=== PATIENT | female | born 1950 | race Caucasian/White ===

== ENCOUNTER 2016-10-15 22:28 | Emergency (ER) | payer MEDICARE, OTHER ==
[~2016-10-15] VITALS: Ht 177.8 cm; Wt 81.6 kg
[~2016-10-15 22:28] MED LIST: AZEL137S5 NS; CALC-102 PO; CEPH500C PO; CETI10CA PO; DICL50TA4 PO; ESOM40CA PO; ESTR30CR VG; EZET1TAB4 PO; FLUT16SP2 NS; GLUC1CAP57 PO; LEVO0.5P MC; LINA145C PO; METH-39 PO; MULT-496 PO; OMEG1CAP2 PO; PSEU30LI PO; RISE35TA3 PO; SERT100T PO; UBID30CA9 PO; VIT1TABL65 PO; ZOLP5TAB PO
--- NOTE | 2016-10-15 22:33 | ED.ADGEN ---
Past History Past Medical History: Hypothyroid, Other Past Surgical History: Other Adult General Chief Complaint Chief Complaint ".. I just missed the last step... and it is the same ankle I broke before... and stubbed my Lt. big toe too...." HPI HPI Patient is a 65 year old female who presents with injury to Rt. ankle and Lt 1st toe. Pt. has marked swelling and unstable right ankle. Distal neurovascular appears to be intact. Patient does have tenderness to left first toe. Pt. did walk on the fx. ankle to get back up the stair.s Patient is now unable to bear weight since the time of injury. Patient normally follows with Dr. Landeros. Patient has had surgery on right ankle due to previous fracture. No other injuries currently reported. Pt. ate just before injury. Review of Systems Review of Systems Constitutional: Denies fever or chills [] Eyes: Denies change in visual acuity, redness, or eye pain [] HENT: Denies nasal congestion or sore throat [] Respiratory: Denies cough or shortness of breath [] Cardiovascular: No additional information not addressed in HPI [] GI: Denies abdominal pain, nausea, vomiting, bloody stools or diarrhea [] : Denies dysuria or hematuria [] Musculoskeletal: Complains of bilateral foot pain and right ankle pain Integument: Denies rash or skin lesions [] Neurologic: Denies headache, focal weakness or sensory changes [] Endocrine: Denies polyuria or polydipsia [] Family History Family History Noncontributory Current Medications Current Medications Current Medications Medications (Trade) Dose Ordered Sig/Kellen Start Time Stop Time Status Last Admin Dose Admin Fentanyl Citrate 25 mcg 25 mcg PRN Q15MIN PRN 10/15/16 22:45 10/16/16 03:53 DC 10/15/16 23:39 25 MCG Lactated Ringer's (Iv Lactated Ringers) 1,000 ml @ 1,000 mls/hr Q1H 10/15/16 22:45 10/16/16 03:53 DC 10/15/16 23:38 1,000 MLS/HR Ondansetron HCl (Zofran) 8 mg 1X ONCE 10/15/16 23:00 10/15/16 23:01 DC 10/15/16 23:00 8 MG See nursing for home medications Allergies Allergies Allergies Coded Allergies Type Severity Reaction Last Updated Verified Sulfa (Sulfonamide Antibiotics) Allergy Intermediate Rash 11/09/14 Yes cefdinir Allergy Intermediate CDIF after using for 6 days 07/16/13 Yes metaxalone Allergy Intermediate nausea 07/16/13 Yes nalbuphine HCl Adverse Reaction Severe HEADACHE 07/16/13 Yes Physical Exam Physical Exam Constitutional: in acute distress, non-toxic appearance. [] HENT: Normocephalic, atraumatic, bilateral external ears normal, oropharynx moist, no oral exudates, nose normal. [] Eyes: PERRLA, EOMI, conjunctiva normal, no discharge. Glasses. Neck: Normal range of motion, no tenderness, supple, no stridor. [] Cardiovascular:Heart rate regular rhythm, no murmur [] Lungs & Thorax: Bilateral breath sounds equal at apexes onauscultation [] Abdomen: Bowel sounds normal, soft, no tenderness, no masses, no pulsatile masses. [] Skin: Warm, dry, no erythema, no rash. [] Back: No tenderness, no CVA tenderness. [] Extremities: Rt. ankle, bilateral feet tenderness, no cyanosis, no clubbing, Rt. ankle and bilateral foot edema. [] No upper leg tenderness. Neurologic: Alert and oriented X 3, normal motor function, normal sensory function, no focal deficits noted. [] Psychologic: Affect anxious, judgement normal, mood normal. [] Current Patient Data Vital Signs Vital Signs Date Time Temp Pulse Resp B/P Pulse Ox O2 Delivery O2 Flow Rate FiO2 10/16/16 01:11 67 16 147/85 94 10/15/16 22:47 98.6 Room Air Lab Results Laboratory Tests Test 10/15/16 22:45 10/15/16 23:45 White Blood Count 11.9x10^3/uL (4.0-11.0) H Red Blood Count 5.13x10^6/uL (3.50-5.40) Hemoglobin 15.6g/dL (12.0-15.5) H Hematocrit 46.6% (36.0-47.0) Mean Corpuscular Volume 91fL (79-100) Mean Corpuscular Hemoglobin 30pg (25-35) Mean Corpuscular Hemoglobin Concent 33g/dL (31-37) Red Cell Distribution Width 13.6% (11.5-14.5) Platelet Count 130x10^3/uL (140-400) L Neutrophils (%) (Auto) 75% (31-73) H Lymphocytes (%) (Auto) 17% (24-48) L Monocytes (%) (Auto) 7% (0-9) Eosinophils (%) (Auto) 1% (0-3) Basophils (%) (Auto) 0% (0-3) Neutrophils # (Auto) 8.9x10^3uL (1.8-7.7) H Lymphocytes # (Auto) 2.1x10^3/uL (1.0-4.8) Monocytes # (Auto) 0.8x10^3/uL (0.0-1.1) Eosinophils # (Auto) 0.1x10^3/uL (0.0-0.7) Basophils # (Auto) 0.0x10^3/uL (0.0-0.2) Prothrombin Time 10.9SEC (9.4-11.4) Prothrombin Time INR 1.1 (0.9-1.1) PTT 24SEC (23-33) Sodium Level 140mmol/L (136-145) Potassium Level 3.8mmol/L (3.5-5.1) Chloride Level 105mmol/L (98-107) Carbon Dioxide Level 24mmol/L (21-32) Anion Gap 11 (6-14) Blood Urea Nitrogen 23mg/dL (7-20) H Creatinine 1.3mg/dL (0.6-1.0) H Estimated GFR (Cockcroft-Gault) 41.0 Glucose Level 157mg/dL (70-99) H Calcium Level 9.3mg/dL (8.5-10.1) BI-Nly-G-Type Natriuretic Peptide 238pg/mL (0-124) H Urine Collection Type Unknown Urine Color Yellow Urine Clarity Hazy Urine pH 6.0 Urine Specific Loving 1.010 Urine Protein Neg (NEG-TRACE) Urine Glucose (UA) Negmg/dL (NEG) Urine Ketones (Stick) Negmg/dL (NEG) Urine Blood Neg (NEG) Urine Nitrite Neg (NEG) Urine Bilirubin Neg (NEG) Urine Urobilinogen Dipstick 0.2mg/dL (0.2 mg/dL) Urine Leukocyte Esterase Neg (NEG) Urine RBC 1-2/HPF (0-2) Urine WBC 1-4/HPF (0-4) Urine Squamous Epithelial Cells Mod/LPF Urine Bacteria Few/HPF (0-FEW) Urine Hyaline Casts Occ/HPF EKG EKG My interpretation EKG shows sinus rhythm at 70 bpm. There is mild leftward axis. This was nonspecific anterior lateral changes. But no findings acute STEMI with contralateral changes. [] Radiology/Procedures Radiology/Procedures My interpretation of Rt. ankle films shows fibular and tibia fx. Old surgery hardware screw in Rt. foot. Lt 1st toe fx. CXR shows no acute cardio pul. changes. [] Course & Med Decision Making Course & Med Decision Making Pertinent Labs and Imaging studies reviewed. (See chart for details). Dr. Arenas consulted for Fx.'s. Dr. Rollins [facility] accepting- in transfer to [facility]. Splint- Posterior -Distal neuro vascular intact.s [] Final Impression Final Impression 1. Fx. Tibia and Fibular 2. Possible Fx. Lt. 1st toe 3. Elevate Creat. and BUN 4. DM 5. Leukocytosis 6. Thrombocytopenia Problems: Dragon Disclaimer Dragon Disclaimer This electronic medical record was generated, in whole or in part, using a voice recognition dictation system. GARCIA RAMOS MD Oct 15, 2016 22:33
[2016-10-15] MEDS ORDERED: FENTANYL PF 100 MCG/2 ML VIAL. IV PRN (22:45)
[2016-10-15] MEDS ORDERED: IV RINGERS SOLUTION,LACTATED 1,000 ML IV SCH (22:45)
--- NOTE | 2016-10-15 22:58 | EKG ---
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
[2016-10-15] MEDS ORDERED: ONDANSETRON PF 4 MG/2 ML VIAL. IV ONE (23:00)
[2016-10-15 23:09] LABS: BASO % 0 % (0-3); EOS # 0.1 x10^3/uL (0.0-0.7); EOS % 1 % (0-3); HEMATOCRIT 46.6 % (36.0-47.0); HEMOGLOBIN 15.6 g/dL (12.0-15.5); LYMPH # 2.1 x10^3/uL (1.0-4.8); LYMPH % 17 % (24-48); MEAN CORPUSCULAR HEMOGLOBIN 30 pg (25-35); MEAN CORPUSCULAR HGB CONC 33 g/dL (31-37); MEAN CORPUSCULAR VOLUME 91 fL (79-100); MONO # 0.8 x10^3/uL (0.0-1.1); MONO % 7 % (0-9); NEUT # 8.9 x10^3uL (1.8-7.7); NEUT % 75 % (31-73); PLATELET COUNT 130 x10^3/uL (140-400); RED BLOOD COUNT 5.13 x10^6/uL (3.50-5.40); RED CELL DISTRIBUTION WIDTH 13.6 % (11.5-14.5); WHITE BLOOD COUNT 11.9 x10^3/uL (4.0-11.0)
[2016-10-15 23:34] LABS: CALCIUM 9.3 mg/dL (8.5-10.1); CREATININE 1.3 mg/dL (0.6-1.0); POTASSIUM 3.8 mmol/L (3.5-5.1)
[2016-10-16 01:11] VITALS: BP 147/85
[2016-10-16 02:02] LABS: BACTERIA,URINE FEW /HPF (0-FEW); BILIRUBIN,URINE NEG (NEG); CLARITY,URINE HAZY; COLOR,URINE YELLOW; GLUCOSE,URINE NEG (NEG); NITRITE,URINE NEG (NEG); SQUAMOUS EPITHELIAL CELL,UR MOD /LPF; UROBILINOGEN,URINE 0.2 mg/dL (0.2 mg/dL)
[2016-10-16 02:03] LABS: HYALINE CASTS, URINE OCC /HPF
--- NOTE | 2016-10-16 07:40 | RAD ---
Right ankle, 3 views, 10/15/2016: History: Fall, pain There is an oblique fracture of the distal fibula with no significant displacement or angulation at the fracture site. There is mild cortical irregularity along the lateral aspect of the distal tibia in the region of the interosseous membrane. No definite acute fracture line is seen. There are tiny radiopacities projected over the soft tissues along the posteromedial aspect of the medial malleolus. It is unclear whether these represent foreign bodies or nonspecific periarticular calcifications. No acute medial malleolar fracture is seen. There is moderate diffuse soft tissue swelling about the ankle. IMPRESSION: Acute distal fibular fracture. Right tibia and fibula, 2 views, 10/15/2016: History: Fall, pain Views of the proximal tibia and fibula reveal no additional acute fracture. There is slight cortical thickening involving the proximal fibular shaft which may be due to old trauma. The visualized portions of the knee are unremarkable. IMPRESSION: No additional fracture is identified.
--- NOTE | 2016-10-16 07:41 | RAD ---
Portable chest, 10/15/2016: History: Fall, injuries The heart size and pulmonary vascularity are normal. No pulmonary infiltrates are seen. There is no evidence of pleural fluid or pneumothorax. IMPRESSION: No acute cardiopulmonary abnormality is detected.
--- NOTE | 2016-10-16 07:45 | RAD ---
Bilateral feet, 10/15/2016: History: Fall, pain There is a surgical screw related to the right distal first metatarsal apparently secondary to previous bunion surgery. The patient's known right distal fibular fracture is again noted. No acute foot fracture or dislocation is detected. There are mild scattered degenerative changes. IMPRESSION: No acute foot abnormality is detected.
== END 2016-10-16 03:53 | disposition short-term general hospital (02) ==
LOC: ER 22:34
DX: S82.301A Unspecified fracture of lower end of right tibia, initial encounter for closed fracture (principal); S82.491A Other fracture of shaft of right fibula, initial encounter for closed fracture; S99.922A Unspecified injury of left foot, initial encounter; R79.89 Other specified abnormal findings of blood chemistry; D72.829 Elevated white blood cell count, unspecified; D69.6 Thrombocytopenia, unspecified; E11.9 Type 2 diabetes mellitus without complications; E03.9 Hypothyroidism, unspecified; Z88.2 Allergy status to sulfonamides; Z88.1 Allergy status to other antibiotic agents; Z88.8 Allergy status to other drugs, medicaments and biological substances; W10.8XXA Fall (on) (from) other stairs and steps, initial encounter; Y93.89 Activity, other specified; Y99.8 Other external cause status; Y92.89 Other specified places as the place of occurrence of the external cause
CPT/HCPCS: 36415; 71010; 73590; 73610; 73630; 80048; 81001; 83880; 84443; 85027; 85610; 85730; 93005; 96361; 96374; 96375; 99285; J2405; J3010; J7120

== ENCOUNTER → 2017-02-20 | Outpatient (CLI) | payer MEDICARE, OTHER ==
[~2017-02-20] MED LIST changes: +EZET1TAB30 PO; -EZET1TAB4 PO
--- NOTE | 2017-02-20 14:02 | RAD ---
DATE: 02/20/2017 EXAM: MAMMO SOLIS SCREENING BILATERAL Bilateral digital screening mammography to include digital breast tomosynthesis (3D mammography) HISTORY: Screening study. COMPARISON: 09/12/2007 This study was interpreted with the benefit of Computerized Aided Detection (CAD). The breast parenchyma is heterogeneously dense, which could reduce sensitivity of mammography. Breast parenchyma level C. FINDINGS: Digital MLO and CC mammograms of both breasts were obtained. Additionally digital breast tomosynthesis (3D mammography) images of both breasts in the MLO and CC projections were performed. Comparison study is dated 02/20/2017. The breast parenchyma is composed of heterogeneously dense which can obscure a lesion on mammography (breast density code C). No spiculated mass is seen. No malignant appearing calcification or area of architectural distortion is noted. Benign-appearing calcifications are seen within both breasts. A localizing clip is seen within the right breast, unchanged. Digital breast tomosynthesis images demonstrate no spiculated mass or malignant appearing calcification. Since the previous examination there has been no significant interval change. IMPRESSION: BI-RADS Category 2, benign finding. There is no mammographic evidence of malignancy. Routine yearly screening mammography is recommended for follow-up. BI-RADS CATEGORY: 2 BENIGN FINDING(S) RECOMMENDED FOLLOW-UP: 12M 12 MONTH FOLLOW-UP PQRS compliance statement: Patient information was entered into a reminder system with a target due date 02/20/2018 for the next mammogram. Mammography is a sensitive method for finding small breast cancers, but it does not detect them all and is not a substitute for careful clinical examination. A negative mammogram does not negate a clinically suspicious finding and should not result in delay in biopsying a clinically suspicious abnormality. "Our facility is accredited by the [employer] Mammography Program."
== END | disposition home or self-care (01) ==
LOC: MAMMO 08:58
PROVIDERS: ATTEND General Practice
DX: Z12.31 Encounter for screening mammogram for malignant neoplasm of breast (principal)
CPT/HCPCS: 77063; G0202; 77067

== ENCOUNTER → 2017-05-06 | Outpatient (CLI) | payer OTHER, MEDICARE ==
--- NOTE | 2017-05-07 07:44 | RAD ---
Right foot, 3 views, 05/06/2017: History: Foot bruised There is a surgical screw in the distal first metatarsal with underlying bony deformity compatible with previous bunion type surgery. There are mild scattered degenerative changes. No acute fracture or dislocation is identified. There is mild subcutaneous edema. IMPRESSION: No acute bony abnormality is detected.
== END | disposition home or self-care (01) ==
LOC: RAD 16:27
PROVIDERS: ATTEND General Practice
DX: S90.31XA Contusion of right foot, initial encounter (principal); M19.071 Primary osteoarthritis, right ankle and foot
CPT/HCPCS: 73630

== ENCOUNTER → 2018-05-01 | Outpatient (CLI) | payer MEDICARE, OTHER ==
--- NOTE | 2018-05-01 13:55 | RAD ---
DATE: 05/01/2018 EXAM: MAMMO SOLIS SCREENING BILATERAL HISTORY: Routine screening COMPARISON: 02/20/2017 This study was interpreted with the benefit of Computerized Aided Detection (CAD). Breast Density: HETERO The breast parenchyma is heterogenously dense, which could reduce sensitivity of mammography. Breast parenchyma level C. FINDINGS: 2-D and 3-D tomosynthesis imaging was performed in CC and MLO projections. A small smooth nodule in the lateral aspect of the left breast is unchanged. No new or enlarging breast densities are seen. An old breast biopsy marker is again noted medially in the right breast with an adjacent coarse calcification. No suspicious microcalcifications have developed. IMPRESSION: Stable mammograms without evidence of malignancy. BI-RADS CATEGORY: 2 BENIGN FINDING(S) RECOMMENDED FOLLOW-UP: 12M 12 MONTH FOLLOW-UP PQRS compliance statement: Patient information was entered into a reminder system with a target due date for the next mammogram. Mammography is a sensitive method for finding small breast cancers, but it does not detect them all and is not a substitute for careful clinical examination. A negative mammogram does not negate a clinically suspicious finding and should not result in delay in biopsying a clinically suspicious abnormality. "Our facility is accredited by the [employer] Mammography Program."
== END | disposition home or self-care (01) ==
LOC: MAMMO 08:59
PROVIDERS: ATTEND Physician Assistant Medical
DX: Z12.31 Encounter for screening mammogram for malignant neoplasm of breast (principal)
CPT/HCPCS: 77063; 77067

== ENCOUNTER → 2018-05-20 | Day surgery (SDC) | payer MEDICARE, OTHER ==
[~2018-05-20] MED LIST changes: +ALBUTEROL SULFATE 2.5 MG/3 ML NEBU. NEB PRN; +ATOR20TA58 PO; +ATROPINE 0.5 MG/5 ML DISP.SYRIN. IV PRN; +BUPR150T15 PO; +CALC-112 PO; +CYCL1DRO EACHEYE; +DONE5TAB56 PO; +FISH12002 PO; +HYDR-2145 PO; +IV RINGERS SOLUTION,LACTATED 1,000 ML IV SCH; +LEVO75TA5 PO; +LIDOCAINE 2% PF Vial for OR 5 ML VIAL. ONE; +LISI-334 PO; +MELO7.5T5 PO; +MONT10TA9 PO; +NALOXONE 0.4 MG/ML VIAL. IV PRN; +ONDANSETRON PF 4 MG/2 ML VIAL. IV PRN; +PROPOFOL 40 ML IV ONE; +TIZA4TAB PO
[2018-05-20 12:41] VITALS: BP 125/71
== END | disposition home or self-care (01) ==
LOC: SURG 10:36
PROVIDERS: ATTEND Internal Medicine Gastroenterology
DX: Z09 Encounter for follow-up examination after completed treatment for conditions other than malignant neoplasm (principal); K63.5 Polyp of colon; Z86.010 Personal history of colon polyps; E78.5 Hyperlipidemia, unspecified; E03.9 Hypothyroidism, unspecified; K21.9 Gastro-esophageal reflux disease without esophagitis; F41.8 Other specified anxiety disorders; F32.9 Major depressive disorder, single episode, unspecified; J30.9 Allergic rhinitis, unspecified; M85.80 Other specified disorders of bone density and structure, unspecified site; G47.00 Insomnia, unspecified; Z88.2 Allergy status to sulfonamides; Z88.8 Allergy status to other drugs, medicaments and biological substances; Z79.899 Other long term (current) drug therapy; J06.9 Acute upper respiratory infection, unspecified; Z98.890 Other specified postprocedural states
CPT/HCPCS: 45385; J2704; J7120; G0105; J2001

== ENCOUNTER 2018-08-25 17:22 | Emergency (ER) | payer MEDICARE, OTHER ==
[~2018-08-25] VITALS: Ht 177.8 cm; Wt 88.5 kg
[~2018-08-25 17:22] MED LIST changes: -ALBUTEROL SULFATE 2.5 MG/3 ML NEBU. NEB PRN; -ATROPINE 0.5 MG/5 ML DISP.SYRIN. IV PRN; -IV RINGERS SOLUTION,LACTATED 1,000 ML IV SCH; -LIDOCAINE 2% PF Vial for OR 5 ML VIAL. ONE; -NALOXONE 0.4 MG/ML VIAL. IV PRN; -ONDANSETRON PF 4 MG/2 ML VIAL. IV PRN; -PROPOFOL 40 ML IV ONE
--- NOTE | 2018-08-25 18:21 | ED.ADGEN ---
Past History Past Medical History: Anxiety, High Cholesterol, Hypertension, Hypothyroid Past Surgical History: Other Alcohol Use: None Drug Use: None Adult General Chief Complaint Chief Complaint foot pain HPI HPI 67 years old female presented to the emergency department with the right foot pain started this morning does not recall major trauma she is able to ambulate with tenderness Review of Systems Review of Systems Constitutional: Denies fever or chills [] Eyes: Denies change in visual acuity, redness, or eye pain [] HENT: Denies nasal congestion or sore throat [] Respiratory: Denies cough or shortness of breath [] Cardiovascular: No additional information not addressed in HPI [] GI: Denies abdominal pain, nausea, vomiting, bloody stools or diarrhea [] : Denies dysuria or hematuria [] Musculoskeletal: Denies back pain or joint pain [] Integument: Denies rash or skin lesions [] Neurologic: Denies headache, focal weakness or sensory changes [] Endocrine: Denies polyuria or polydipsia [] All other systems were reviewed and found to be within normal limits, except as documented in this note. Current Medications Current Medications Current Medications Medications (Trade) Dose Ordered Sig/Kellen Start Time Stop Time Status Last Admin Dose Admin Ibuprofen (Motrin) 600 mg 1X ONCE 08/25/18 18:15 08/25/18 18:16 DC Allergies Allergies Allergies Coded Allergies Type Severity Reaction Last Updated Verified Sulfa (Sulfonamide Antibiotics) Allergy Intermediate Rash 05/20/18 Yes cefdinir Allergy Intermediate CDIF after using for 6 days 05/20/18 Yes metaxalone Allergy Intermediate nausea 05/20/18 Yes nalbuphine HCl Adverse Reaction Severe HEADACHE 05/20/18 Yes Physical Exam Physical Exam Constitutional: Well developed, well nourished, no acute distress, non-toxic appearance. [] HENT: Normocephalic, atraumatic, bilateral external ears normal, oropharynx moist, no oral exudates, nose normal. [] Eyes: PERRLA, EOMI, conjunctiva normal, no discharge. [] Neck: Normal range of motion, no tenderness, supple, no stridor. [] Cardiovascular:Heart rate regular rhythm, no murmur [] Lungs & Thorax: Bilateral breath sounds clear to auscultation [] Abdomen: Bowel sounds normal, soft, no tenderness, no masses, no pulsatile masses. [] Skin: Warm, dry, no erythema, no rash. [] Back: No tenderness, no CVA tenderness. [] Extremities: Tender right foot, minimal swelling and minimal ecchymosis Neurologic: Alert and oriented X 3, normal motor function, normal sensory function, no focal deficits noted. [] Psychologic: Affect normal, judgement normal, mood normal. [] Current Patient Data Vital Signs Vital Signs Date Time Temp Pulse Resp B/P (MAP) Pulse Ox O2 Delivery O2 Flow Rate FiO2 08/25/18 17:33 97.4 59 16 98 Room Air EKG EKG [] Radiology/Procedures Radiology/Procedures [] Course & Med Decision Making Course & Med Decision Making Pertinent Labs and Imaging studies reviewed. (See chart for details) [] Final Impression Final Impression [] Problems: (1) Gustafson fracture Qualifiers: Qualified Codes: S99.191A - Other physeal fracture of right metatarsal, initial encounter for closed fracture Dragon Disclaimer Dragon Disclaimer This electronic medical record was generated, in whole or in part, using a voice recognition dictation system. RAMONA BANSAL MD Aug 25, 2018 18:21
[2018-08-25] MEDS: IBUPROFEN 600 MG TABLET. PO ONE (18:39)
[2018-08-25 18:40] VITALS: BP 151/61
--- NOTE | 2018-08-25 23:26 | RAD ---
FOOT RIGHT 3V History: INJURY TO FOOT FROM FALL TODAY. PRIOR SURGERY TO FOOT WITH HARDWARE Comparison: April 26, 2017 Findings: 3 views of the right foot are submitted. There is now very minimally displaced fracture of the proximal fifth metatarsal. There is again single screw of the distal first metatarsal. Impression: 1. There is acute fracture of the proximal fifth metatarsal. Electronically signed by: Jerrell Lockett MD (08/25/2018 11:23 PM) [facility]
== END 2018-08-25 18:42 | disposition home or self-care (01) ==
LOC: ER 17:22
DX: S92.351A Displaced fracture of fifth metatarsal bone, right foot, initial encounter for closed fracture (principal); F41.9 Anxiety disorder, unspecified; E78.00 Pure hypercholesterolemia, unspecified; I10 Essential (primary) hypertension; E03.9 Hypothyroidism, unspecified; Z88.2 Allergy status to sulfonamides; Z88.1 Allergy status to other antibiotic agents; Z88.8 Allergy status to other drugs, medicaments and biological substances; X50.9XXA Other and unspecified overexertion or strenuous movements or postures, initial encounter; Y93.89 Activity, other specified; Y92.89 Other specified places as the place of occurrence of the external cause; Y99.8 Other external cause status
CPT/HCPCS: 29515; 73630; 99283

== ENCOUNTER → 2019-07-02 | Outpatient (CLI) | payer MEDICARE, OTHER ==
[~2019-07-02] MED LIST changes: +MONT10TA80 PO; -MONT10TA9 PO; -TIZA4TAB PO; +TIZA4TAB2 PO
--- NOTE | 2019-07-02 17:44 | RAD ---
DATE: 07/02/2019 EXAM: MAMMO SOLIS SCREENING BILATERAL HISTORY: Routine screening COMPARISON: 05/01/2018, 02/20/2017, 08/09/2015, 03/30/2014 This study was interpreted with the benefit of Computerized Aided Detection (CAD). Breast Density: HETERO The breast parenchyma is heterogenously dense, which could reduce sensitivity of mammography. Breast parenchyma level C. FINDINGS: Biopsy clip marker involves the right upper inner breast. No suspicious calcifications or distortion. No new mass. IMPRESSION: Stable BI-RADS CATEGORY: 1 NEGATIVE RECOMMENDED FOLLOW-UP: 12M 12 MONTH FOLLOW-UP PQRS compliance statement: Patient information was entered into a reminder system with a target due date for the next mammogram. Mammography is a sensitive method for finding small breast cancers, but it does not detect them all and is not a substitute for careful clinical examination. A negative mammogram does not negate a clinically suspicious finding and should not result in delay in biopsying a clinically suspicious abnormality. "Our facility is accredited by the [employer] Mammography [employer]."
== END | disposition home or self-care (01) ==
LOC: MAMMO 10:22
PROVIDERS: ATTEND Physician Assistant Medical
DX: Z12.31 Encounter for screening mammogram for malignant neoplasm of breast (principal); N64.89 Other specified disorders of breast; Z96.89 Presence of other specified functional implants
CPT/HCPCS: 77063; 77067

== ENCOUNTER → 2019-07-30 | Outpatient (CLI) | payer MEDICARE, OTHER ==
[~2019-07-30] MED LIST changes: +CRAN250C PO; +GLUC-11 PO; +INUL2TAB4 PO; +NAPR-514 PO; +PRIM50TA24 PO; +PROP15DR40 EACHEYE
--- NOTE | 2019-07-30 10:08 | RAD ---
EXAM: Dual energy x-ray absorptiometry (DEXA). HISTORY: Postmenopausal female presents for osteoporosis screening. COMPARISON: 08/09/2015. TECHNIQUE: Dual energy x-ray absorptiometry of the lumbar spine and right hip was performed. Calculation of bone mineral density based on standard deviations above or below the expected young adult normal value (T-score) was completed. FINDINGS: The average bone mineral density in the 1st through 4th lumbar vertebrae is 0.968 g/cmxcm, corresponding with a T-score of -1.8. The average total bone mineral density in the right hip is 0.767 g/cmxcm, corresponding with a T-score of -1.5. There has been a 0.5% decrease in density of the lumbar spine and 2.6% increase in density of the right hip compared to a baseline exam dated 08/09/2015. IMPRESSION: Osteopenia. Note: Definitions established by the World Health Organization: 1. Normal: T-score is -1.0 or above. 2. Osteopenia: T-score is between -1.0 and -2.5 . 3. Osteoporosis: T-score is -2.5 or below. Electronically signed by: Pastora Ramsay MD (07/30/2019 10:05 AM) [facility]
== END | disposition home or self-care (01) ==
LOC: DXRAD 09:18
PROVIDERS: ATTEND Physician Assistant Medical
DX: M85.88 Other specified disorders of bone density and structure, other site (principal); Z78.0 Asymptomatic menopausal state
CPT/HCPCS: 77080

== ENCOUNTER → 2019-08-04 | Day surgery (SDC) | payer MEDICARE, OTHER ==
[~2019-08-04] MED LIST changes: +ACETAMINOPHEN 325 MG TABLET PO PRN; +ALBUTEROL SULFATE 2.5 MG/3 ML NEBU. NEB PRN; +ATROPINE 0.5 MG/5 ML DISP.SYRIN. IV PRN; +IV RINGERS SOLUTION,LACTATED 1,000 ML IV SCH; +ONDANSETRON PF 4 MG/2 ML VIAL. IV PRN; +PROPOFOL 40 ML IV ONE; +diphenhydrAMINE 50 MG/ML VIAL IV PRN
[2019-08-04 12:45] VITALS: BP 115/56
== END ==
LOC: SURG 11:30
PROVIDERS: ATTEND Internal Medicine Gastroenterology
DX: Z12.11 Encounter for screening for malignant neoplasm of colon (principal); D12.2 Benign neoplasm of ascending colon; I10 Essential (primary) hypertension; E03.9 Hypothyroidism, unspecified; K21.9 Gastro-esophageal reflux disease without esophagitis; F41.9 Anxiety disorder, unspecified; Z90.710 Acquired absence of both cervix and uterus; Z98.890 Other specified postprocedural states; Z88.1 Allergy status to other antibiotic agents; Z88.8 Allergy status to other drugs, medicaments and biological substances; Z86.010 Personal history of colon polyps
CPT/HCPCS: 45385; J2704; J7120

== ENCOUNTER → 2020-07-21 | Outpatient (CLI) | payer MEDICARE, OTHER ==
[~2020-07-21] MED LIST changes: -ACETAMINOPHEN 325 MG TABLET PO PRN; -ALBUTEROL SULFATE 2.5 MG/3 ML NEBU. NEB PRN; -ATROPINE 0.5 MG/5 ML DISP.SYRIN. IV PRN; -IV RINGERS SOLUTION,LACTATED 1,000 ML IV SCH; -ONDANSETRON PF 4 MG/2 ML VIAL. IV PRN; -PROPOFOL 40 ML IV ONE; -diphenhydrAMINE 50 MG/ML VIAL IV PRN
--- NOTE | 2020-07-21 16:11 | RAD ---
EXAMINATION: MG BILAT SCREEN+SOLIS CLINICAL HISTORY: Routine screening, history of benign biopsy on the right TECHNIQUE: Digital craniocaudal and mediolateral oblique views of the bilateral breasts obtained with 3-D tomosynthesis. COMPARISON: 07/02/2019, 05/01/2018, 02/20/2017 BREAST COMPOSITION: There are scattered areas of fibroglandular density. FINDINGS: No evidence of suspicious mass, calcifications, or areas of architectural distortion. Biopsy marker c lip in the right medial breast remains in similar position. IMPRESSION: No mammographic evidence of malignancy. BI-RADS ASSESSMENT: Category 2: Benign RECOMMENDATION: Return for routine bilateral screening mammogram in one year. PQRS compliance statement - Patient information was entered into a reminder system with a target due date for the next mammogram. "Our facility is accredited by the [employer] Mammography Program." Electronically signed by: Narendra Merlos DO (07/21/2020 4:09 PM) [id number]
== END ==
LOC: MAMMO 10:34
PROVIDERS: ATTEND Physician Assistant Medical
DX: Z12.31 Encounter for screening mammogram for malignant neoplasm of breast (principal)
CPT/HCPCS: 77063; 77067

== ENCOUNTER → 2021-01-03 | Outpatient (CLI) | payer MEDICARE, OTHER ==
[~2021-01-03] MED LIST changes: -LISI-334 PO; +LISI20TA18 PO
--- NOTE | 2021-01-03 12:32 | RAD ---
EXAM: Left shoulder, 3 views; left hip, 2 views. HISTORY: Pain. COMPARISON: None. FINDINGS: Left shoulder: 3 views left shoulder obtained. There is no fracture, dislocation or subluxation. Left hip: 2 views of the left hip are obtained. There is no fracture, dislocation or subluxation. The re is degenerative change involving the visualized lower lumbar spine. There are postoperative change s overlying the pelvis. IMPRESSION: No acute osseous finding. Electronically signed by: Pastora Ramsay MD (01/03/2021 12:29 PM) [id number]
== END ==
LOC: RAD 12:09
PROVIDERS: ATTEND Physician Assistant Medical
DX: M25.512 Pain in left shoulder (principal); M25.552 Pain in left hip; M47.816 Spondylosis without myelopathy or radiculopathy, lumbar region
CPT/HCPCS: 73030; 73502

== ENCOUNTER → 2021-07-27 | Outpatient (CLI) | payer MEDICARE, OTHER ==
[~2021-07-27] MED LIST changes: +TIZA-75 PO; -TIZA4TAB2 PO
--- NOTE | 2021-07-27 16:28 | RAD ---
EXAM: MG BILAT SCREEN+SOLIS HISTORY: Routine screening COMPARISON: 07/21/2020 This study was interpreted with the benefit of Computerized Aided Detection (CAD). FINDINGS: The breast parenchyma scattered, category B. There are no dominant suspicious masses, suspicious lavern rocalcifications or evidence of architectural distortion. Biopsy clip marker right breast identified. IMPRESSION: Benign findings BI-RADS CATEGORY: 2 BENIGN FINDING RECOMMENDED FOLLOW-UP: 12 M PQRS compliance statement: Patient information was entered into a reminder system with a target due d ate 07/27/2022 for the next mammogram. If your mammogram demonstrates that you have dense breast tissue, which could hide abnormalities, and if you have other risk factors for breast cancer that have been identified, you might benefit from s upplemental screening tests that may be suggested by your ordering physician. Dense breast tissue, in and of itself, is a relatively common condition. This information is not provided to cause undue con cern, but rather to raise your awareness and to promote discussion with your physician regarding the presence of other risk factors, in addition to dense breast tissue. A report of your mammography resu lts will be sent to you and your physician. You should contact your physician if you have any questio ns or concerns regarding this report. Mammography is a sensitive method for finding small breast cancers, but it does not detect them all a nd is not a substitute for careful clinical examination. A negative mammogram does not negate a clin ically suspicious finding and should not result in delay in biopsying a clinically suspicious abnorma lity. "Our facility is accredited by the [employer] Mammography Program." Electronically signed by: González García MD (07/27/2021 4:25 PM) [id number]
== END ==
LOC: MAMMO 14:52
PROVIDERS: ATTEND Physician Assistant Medical
DX: Z12.31 Encounter for screening mammogram for malignant neoplasm of breast (principal)
CPT/HCPCS: 77063; 77067

== ENCOUNTER → 2021-09-15 | Outpatient (CLI) | payer MEDICARE, OTHER ==
--- NOTE | 2021-09-15 15:37 | RAD ---
EXAMINATION: XR RT TIBIA+FIBULA . HISTORY: 70 years Female Reason: RIGHT LATERAL-MID LEG PAIN, X 2 MONTHS, NO KNOWN INJURY COMPARISON: None. FINDINGS: No acute fracture, dislocation or radiopaque foreign body. There is deformity seen along the distal l eft fibula which could relate to an old injury. The joint spaces and articular surfaces appear unrem arkable. IMPRESSION: No acute process. Electronically signed by: Albert Santos MD (09/15/2021 3:34 PM) [id number]
== END ==
LOC: EDBD 15:09 → RAD 15:09
PROVIDERS: ATTEND Nurse Practitioner Family
DX: M79.604 Pain in right leg (principal); E11.22 Type 2 diabetes mellitus with diabetic chronic kidney disease; N18.30 Chronic kidney disease, stage 3 unspecified; D63.1 Anemia in chronic kidney disease
CPT/HCPCS: 73590

== ENCOUNTER → 2021-10-05 | Outpatient (CLI) | payer MEDICARE, OTHER ==
--- NOTE | 2021-10-05 08:18 | RAD ---
Examination: Right Lower Extremity Venous Doppler Ultrasound History: Right calf pain Comparison: None Procedure: Ridley scale, color flow 2D and spectal waveform analysis images are obtained with and witho ut compression in the area of the common femoral vein, superficial femoral vein - femoral vein juncti on, main femoral vein (superficial femoral vein) and popliteal vein. Veins of the proximal calf are a lso imaged. Findings: There is normal duplex flow, color flow and compressibility of all visualized vein segments. No evide nce of deep venous thrombus is present. Impression: No evidence of DVT in the right lower extremity venous system. Electronically signed by: González García MD (10/05/2021 8:15 AM) [id number]
== END ==
LOC: US 07:43
PROVIDERS: ATTEND Physician Assistant Medical
DX: M79.661 Pain in right lower leg (principal)
CPT/HCPCS: 93971